=== PATIENT | female | born 1980 | race Caucasian/White ===

== ENCOUNTER 2016-11-07 21:52 | Observation (INO) | payer OTHER | END 2016-11-08 00:15 | disposition home or self-care (01) | LOC: FLD 21:52 | PROVIDERS: ADMIT Obstetrics & Gynecology; ATTEND Obstetrics & Gynecology | DX: Z36 Encounter for antenatal screening of mother (principal) | CPT/HCPCS: 59025; G0378 ==

== ENCOUNTER 2016-11-08 19:40 | Observation (INO) | payer OTHER | END 2016-11-08 20:57 | disposition home or self-care (01) | LOC: FLD 19:40 | PROVIDERS: ADMIT Obstetrics & Gynecology; ATTEND Obstetrics & Gynecology | DX: Z36 Encounter for antenatal screening of mother (principal) | CPT/HCPCS: G0378 ==

== ENCOUNTER 2016-11-16 01:00 | Observation (INO) | payer OTHER | END 2016-11-16 02:25 | disposition home or self-care (01) | LOC: INTOOBSV 01:00 → FLD 01:00 | PROVIDERS: ADMIT Obstetrics & Gynecology; ATTEND Obstetrics & Gynecology | DX: Z36 Encounter for antenatal screening of mother (principal); Z3A.40 40 weeks gestation of pregnancy | CPT/HCPCS: 59025; G0378 ==

== ENCOUNTER 2016-11-18 20:20 | Inpatient (IN) | payer OTHER ==
[2016-11-18] MEDS ORDERED: OXYTOCIN/RINGERS LACTATE 1,000 ML IV PRN (20:43)
[2016-11-18] MEDS ORDERED: LR 1,000 ML IV PRN (20:43)
[2016-11-18] MEDS ORDERED: IBUPROFEN 600 MG TAB PO PRN (20:43)
[2016-11-18] MEDS ORDERED: TERBUTALINE SULFATE 1 MG/ML VIAL IV PRN (20:43)
--- NOTE | 2016-11-18 20:46 | PDGENHP ---
History and Physical - Chief Complaint labor - History of Present Illness Pt is a 35 yo at 40w3d, here for labor. Found to be 8 cm at time of arrival to hospital. complicated by rubella non immune, AMA with normal genetic screening. GBS neg. s/p tdap and flu shots History Information - Allergies/Home Medication List Allergies/Adverse Reactions: metronidazole [From Flagyl] Allergy (Unknown, Verified 06/01/15 06:54) Metronidazole HCl [From Flagyl] Allergy (Unknown, Verified 06/01/15 06:54) gluten Allergy (Verified 11/16/16 01:21) Home Medications: Dha 1 cap PO DAILY 05/29/15 [Last Taken 11/15/16] 1 tab PO DAILY 05/29/15 [Last Taken 11/15/16] CRANBERRY 2 cap PO DAILY 11/16/16 [Last Taken 11/15/16] IRON 1 tab PO Q2EVEN 11/16/16 [Last Taken 11/15/16] I have personally reviewed and updated: family history, medical history, social history, surgical history - Past Medical History Additional medical history: PACs - Surgical History Additional surgical history: D&C x 2 - Social History Smoking Status: Never smoked Alcohol Use: None Drug Use: None Review of Systems ROS: 10pt was reviewed & negative except for what was stated in HPI & below Physical Exam Physical Exam: FHR baseline 120, mod ivis, + acc, no decel Contractions: every 1-2 min SVE 8/100/-1/intact/vtx 123/70 90 37.5 Constitutional: other (in discomfort with contractions) Ears, Nose, Mouth, Throat: moist mucous membranes, hearing normal Cardiovascular: regular rate and rhythym Respiratory: no respiratory distress Gastrointestinal: soft, non-tender abdomen Skin: warm Musculoskeletal: full muscle strength Neurologic: AAOx3 Psychiatric: interacting appropriately, not anxious, thought process linear Assessment & Plan Assessment: 40w3d, active labor GBS neg FHR reassuring Declines pain medication Plan: Anticipate MMR
[2016-11-18] MEDS ORDERED: TERBUTALINE SULFATE 1 MG/ML VIAL ONE (20:55)
[2016-11-18] MEDS ORDERED: MISOPROSTOL 200 MCG TAB ONE (20:55)
[2016-11-18] MEDS ORDERED: OXYTOCIN 10 UNIT/ML VIAL ONE (20:55)
[2016-11-18] MEDS ORDERED: LIDOCAINE 1% 30 ML SDV ONE (20:55)
[2016-11-18] MEDS ORDERED: AMMONIA AROMATIC 1 EACH AMP IH ONE (20:55)
[2016-11-18 21:04] LABS: % IMMATURE GRANULYOCYTES 0.4 % (0.0-1.1); ABSOLUTE IMMATURE GRANULOCYTES 0.05 10^3/uL (0.00-0.10); ADD DIFF? NO; ADD MORPH? NO; ADD SCAN? NO; ATYPICAL LYMPHOCYTE FLAG 0 (0-99); FRAGMENT RBC FLAG 0 (0-99); HEMATOCRIT 42.5 % (38.0-47.0); HEMOGLOBIN 14.8 g/dL (12.6-16.3); LEFT SHIFT FLG 0 (0-99); LIPEMIA HEMOLYSIS FLAG 90 (0-99); MEAN CELL HEMOGLOBIN 31.2 pg (27.9-34.1); MEAN CELL HEMOGLOBIN CONCENTR. 34.8 g/dL (32.4-36.7); MEAN CELL VOLUME 89.7 fL (81.5-99.8); MEAN PLATELET VOLUME 12.4 fL (8.7-11.7); PLATELET CLUMPS FLAG 0 (0-99); PLATELET COUNT 209 10^3/uL (150-400); RED BLOOD CELL COUNT 4.74 10^6/uL (4.18-5.33); RED CELL DISTRIBUTION WIDTH 14.2 % (11.5-15.2)
--- NOTE | 2016-11-18 21:47 | OBPROC ---
- Labor and Delivery Onset of Contractions Date: 11/18/16 Onset of Contractions Time: 19:30 Onset of Contractions Type: Spontaneous Rupture of Membranes Date: 11/18/16 Rupture of Membranes Type: Spontaneous Amniotic Fluid Color: Meconium Stained-Light Delivery Type: Spontaneous Placenta Delivery Date: 11/18/16 Placenta Delivery Time: 21:10 Episiotomy/Laceration: 2nd Degree Repair: 3-0 - Medications Labor Augmentation/Induction Meds Used: None Anesthesia: Local (Specify) (10 ml 1% lidocaine used during vaginal repair) - Info Infant A Delivery Date: 11/18/16 Delivery Time: 21:07 Sex of Infant: Female Score (1 Min): 8 Score (5 Min): 9
[2016-11-18] MEDS: IBUPROFEN 600 MG TAB PO PRN (22:54)
[2016-11-19] MEDS: IBUPROFEN 600 MG TAB PO PRN ×3 (04:56→17:10)
[2016-11-19 08:07] VITALS: BP 103/74; PULSE 79; RESP 16; TEMP 97.5; O2SAT 96
[2016-11-19] MEDS ORDERED: MEASLES,MUMPS&RUBELLA VACC/PF 0.5 ML VIAL SC ONE ×2 (08:12→20:00)
--- NOTE | 2016-11-19 08:16 | SOAPPROG ---
SOAP Progress Note Assessment/Plan: Assessment: 35 y.o. female s/p day #1. A pos, R- NI (vaccine ordered), GBS neg. Stable and without concerns Plan: Routine orders. Anticipate discharge tomorrow. 11/19/16 08:13 Subjective: Reports feeling well with minimal discomfort and vaginal bleeding. infant without assistance. Eating and drinking well without nausea or vomiting. Has been out of bed and ambulating without vertigo. Appropriate mood with good support system. Objective: Vital Signs Temp Pulse Resp BP Pulse Ox 36.4 C 79 16 103/74 96 11/19/16 08:06 11/19/16 08:06 11/19/16 08:06 11/19/16 08:06 11/19/16 08:06 Laboratory Results 11/18/16 20:45 11/18/16 11/19/16 11/20/16 05:59 05:59 05:59 Output Total 300 Balance -300 - Time Spent With Patient Time Spent With Patient: 20 minutes - Pending Discharge Pending Discharge Within 24 Hours: Yes Pending Discharge Date: 11/20/16 Pending Discharge Time: 11:00 Physical Exam - Physical Exam General Appearance: WD/WN, alert, no apparent distress EENT: normal ENT inspection Neck: non-tender, full range of motion Respiratory: lungs clear, normal breath sounds Cardiac/Chest: regular rate, rhythm Abdomen: non-tender, soft Pelvic Exam: normal external exam Rectal: deferred Back: Normal inspection Skin: normal color, warm/dry Lymphatic: no adenopathy Extremities: normal range of motion, non-tender Neuro/Psych: alert, normal mood/affect, oriented x 3 ICD10 Worksheet Patient Problems: Problems Problem Status Onset Spontaneous vaginal delivery Acute
== END 2016-11-19 22:30 | disposition home or self-care (01) | DRG 769 ==
LOC: FLD 20:20 → OBSVTOIN 20:43 → FOB 23:35
PROVIDERS: ADMIT Obstetrics & Gynecology; ATTEND Obstetrics & Gynecology
PROC: 10E0XZZ Delivery of Products of Conception, External Approach (ICD-10-PCS; principal; 2016-11-18)
PROC: 0KQM0ZZ Repair Perineum Muscle, Open Approach (ICD-10-PCS; principal; 2016-11-18)
DX: O70.1 Second degree perineal laceration during delivery (principal); O77.0 Labor and delivery complicated by meconium in amniotic fluid; O09.523 Supervision of elderly multigravida, third trimester; Z3A.40 40 weeks gestation of pregnancy
CPT/HCPCS: J2590; J3105

== ENCOUNTER → 2018-06-23 | Outpatient (CLI) | payer OTHER | LOC: FIMAGING 11:50 | PROVIDERS: ATTEND Family Medicine | DX: M79.672 Pain in left foot (principal) ==

== ENCOUNTER 2018-07-23 18:07 | Emergency (ER) | payer OTHER ==
--- NOTE | 2018-07-23 20:10 | EDPHY ---
H & P Stated Complaint: Visual spots/DVT Time Seen by Provider: 07/23/18 19:40 HPI/ROS: CHIEF COMPLAINT: DVT, visual spots HISTORY OF PRESENT ILLNESS: 37-year-old female presents with a DVT and visual spots. She sustained a metatarsal fracture 3 weeks ago and was placed in a cast. Gradually increasing pain in the left lower extremity for 1 week. Diagnosed with a DVT in the left lower extremity yesterday. She took a 1st dose of Xarelto yesterday. She is currently breast-feeding, so her primary care physician switched her to Lovenox and Coumadin today. She has not taken the 1st doses of these medications yet. She has experienced increased anxiety recently and especially feels anxious about being on blood thinners. She looked on the Internet and her anxiety increased. She then noticed that with blinking, the lights would seem brighter than usual. She has had this happen before, especially in stressful situations. No headache, head injury or loss of vision. REVIEW OF SYSTEMS: complete 10 point ROS reviewed and is negative except for the noted elements in the HPI - Personal History LMP (Females 10-55): 15-21 Days Ago Current Tetanus/Diphtheria Vaccine: Yes - Medical/Surgical History Hx Asthma: No Hx Chronic Respiratory Disease: No Hx Diabetes: No Hx Cardiac Disease: No Hx Renal Disease: No Hx Cirrhosis: No Hx Alcoholism: No Hx HIV/AIDS: No Hx Splenectomy or Spleen Trauma: No Other PMH: pmh- uti/yeast infx 04/04/2015, , PSH: Urethral surg childhood, wisdom teeth removal youth; D&C 2014; Celiac Disease; Rubella NI - Social History Smoking Status: Never smoked Alcohol Use: Sober Drug Use: None - Physical Exam Exam: General Appearance: Alert, pleasant Eyes: Pupils equal and round, EOMI, no conjunctival pallor or injection ENT, Mouth: Mucous membranes moist Neck: Normal inspection Respiratory: Lungs are clear to auscultation Cardiovascular: Regular rate and rhythm Gastrointestinal: Abdomen is soft and nontender Neurological: A&O, nonfocal, normal gait Skin: Warm and dry Extremities: Left lower extremity in a Kurtz boot Psychiatric: Anxious Constitutional: Initial Vital Signs Temperature (C) 37.2 C 07/23/18 18:19 Heart Rate 82 07/23/18 18:19 Respiratory Rate 18 07/23/18 18:19 Blood Pressure 127/79 H 07/23/18 18:19 O2 Sat (%) 97 07/23/18 18:19 O2 Delivery Mode Room Air Allergies/Adverse Reactions: metronidazole [From Flagyl] Allergy (Unknown, Verified 07/23/18 18:25) Metronidazole HCl [From Flagyl] Allergy (Unknown, Verified 07/23/18 18:25) gluten Allergy (Verified 07/23/18 18:25) Home Medications: Medication Instructions Recorded Dha 1 cap PO DAILY 05/29/15 1 tab PO DAILY 05/29/15 CRANBERRY 2 cap PO DAILY 11/16/16 IRON 1 tab PO Q2EVEN 11/16/16 Medical Decision Making ED Course/Re-evaluation: This patient presents with newly diagnosed DVT and significant anxiety. No evidence of serious etiology for visual concern, including no evidence of hemorrhage. The patient was reassured. I answered her multiple questions. The ED RN showed her how to inject Lovenox and she received the 1st dose of Lovenox in the ED. Departure - Departure Disposition: Home, Routine, Self-Care Clinical Impression: DVT of axillary vein, acute left, Anxiety Condition: Good Instructions: Deep Vein Thrombosis (ED), Anxiety (ED) Referrals: Toya Singh MD [Primary Care Provider] - As per Instructions
[2018-07-23 20:25] VITALS: BP 115/77
== END 2018-07-23 20:27 | disposition home or self-care (01) ==
DX: F41.9 Anxiety disorder, unspecified (principal); I82.402 Acute embolism and thrombosis of unspecified deep veins of left lower extremity

== ENCOUNTER 2018-07-30 14:20 | Emergency (ER) | payer OTHER ==
--- NOTE | 2018-07-30 15:05 | EDPHY ---
H & P Stated Complaint: Increased left leg pain, recent diagnosis of DVT. Time Seen by Provider: 07/30/18 14:59 - Personal History Current Tetanus Diphtheria and Acellular Pertussis (TDAP): Yes - Medical/Surgical History Hx Asthma: No Hx Chronic Respiratory Disease: No Hx Diabetes: No Hx Cardiac Disease: No Hx Renal Disease: No Hx Cirrhosis: No Hx Alcoholism: No Hx HIV/AIDS: No Hx Splenectomy or Spleen Trauma: No Other PMH: pmh- uti/yeast infx 04/04/2015, , PSH: Urethral surg childhood, wisdom teeth removal youth; D&C 2015; Celiac Disease; Rubella NI - Social History Smoking Status: Never smoked Constitutional: Initial Vital Signs Temperature (C) 36.6 C 07/30/18 14:24 Heart Rate 85 07/30/18 14:24 Respiratory Rate 16 07/30/18 14:24 Blood Pressure 119/103 H 07/30/18 14:24 O2 Sat (%) 96 07/30/18 14:24 O2 Delivery Mode Room Air Allergies/Adverse Reactions: metronidazole [From Flagyl] Allergy (Unknown, Verified 07/23/18 18:25) Metronidazole HCl [From Flagyl] Allergy (Unknown, Verified 07/23/18 18:25) gluten Allergy (Verified 07/23/18 18:25) Home Medications: Medication Instructions Recorded Coumadin 07/30/18 Enoxaparin [Lovenox 100 MG (*)] 100 mg SQ Q12H #10 syr 07/30/18 Medical Decision Making - Diagnostics Imaging Results: Imaging Impressions Extremity Venous Study 07/30/18 15:17 Impression: Positive deep venous thrombosis involving the left popliteal and calf veins. Findings and recommendations discussed with Emergency Department physician, Yaniv Escobedo MD, at 1628 hours, 07/30/2018. Final report concurs with initial preliminary interpretation. Imaging: Discussed imaging studies w/ tile grinder Radiologist, I viewed and interpreted images myself ED Course/Re-evaluation: CHIEF COMPLAINT: Left leg pain HISTORY OF PRESENT ILLNESS: The patient is an anticoagulated 37 y/o female with a history of a metatarsal fracture which resulted in a DVT and is now complaining of left leg pain. On , 8 days ago, she was diagnosed with the left leg DVT and took Xarelto. On the following Thursday morning she switched to Lovenox and Coumadin as she is . Today her INR was 1.4, but she developed upper left thigh pain. She became concerned that she developed another DVT and decided to present to the emergency department. No headache, chest pain, shortness of breath, abdominal pain, urinary or bowel complaints, numbness, fevers. REVIEW OF SYSTEMS: A comprehensive 10 system review of systems is otherwise negative aside from the elements mentioned in the history of present illness and medical decision making. PHYSICAL EXAM: HR, BP, O2 Sat, RR. Temp noted General Appearance: Alert, well hydrated, appropriate, and non-toxic appearing. Head: Atraumatic without scalp tenderness or obvious injury Eyes: Pupils equal, round, reactive to light and accommodation, EOMI, no trauma , no injection. Ears: Clear bilaterally, no perforation, normal landmarks Nose: Atraumatic, no rhinorrhea, clear. Throat: There is no erythema or exudates, no lesions, normal tonsils, mucus membranes moist. Neck: Supple, nontender, no lymphadenopathy. Respiratory: No retractions, no distress, no wheezes, and no accessory muscle use. Lungs are clear to auscultation bilaterally. Cardiovascular: Regular rate and rhythm, no murmurs, rubs, or gallops. Bilateral carotid, radial, dorsalis pedis, and posterior tibial pulses intact. Good capillary refill all extremities. Gastrointestinal: Abdomen is soft, nontender, non-distended, no masses, no rebound, no guarding, no peritoneal signs. Musculoskeletal: Left Kurtz boot in place. Normal active ROM of all extremities, atraumatic. Neurological: Alert, appropriate, and interactive. The patient has normal DTRs and non-focal cranial nerves, motor, sensory, and cerebellar exam. Skin: No rashes, good turgor, no nodules on palpation. Past medical history: Metatarsal fracture, left leg DVT, Celiac Past surgical history: Urethral surgery, D&C Family history: Denies Social history: at bedside, lives in [place] DIAGNOSTICS/PROCEDURES/CRITICAL CARE TIME: Left extremity US: Popliteal and below DVT; unchanged from prior imaging studies DIFFERENTIAL DIAGNOSIS: The differential diagnosis for the patient's leg swelling included but was not limited to hypoalbuminemia, congestive heart failure, cor pulmonale, venous stasis, trauma, and DVT. MEDICAL DECISION MAKING: The patient is an anticoagulated 37 y/o female with a history of a metatarsal fracture which resulted in a DVT and is now presenting with left leg pain. On exam, she has Kurtz boot on her left foot. Her exam is otherwise unremarkable. Extremity US ordered. 162: I spoke with Dr. Goodwin, radiologist, who reports that the DVT is still in the popliteal and below. 1629: Reassessed patient and discussed her imaging findings. I have advised her to continue taking Lovenox as prescribed as she is still not therapeutic. I have also advised her to follow up with her PCP without fail. I have also advised her to follow up with Dr. Smith regarding the anticoagulants. Return precautions provided; patient is comfortable with this plan. Departure - Departure Disposition: Home, Routine, Self-Care Clinical Impression: Deep venous thrombosis of left popliteal vein Qualifiers: Chronicity: acute Qualified Code(s): I82.432 - Acute embolism and thrombosis of left popliteal vein Condition: Good Instructions: Deep Vein Thrombosis (ED), Deep Vein Thrombosis Prevention (ED) Additional Instructions: 1. Continue taking Lovenox as prescribed. 2. Follow-up with your primary doctor within 72 hours without fail. 3. Return to the Emergency Department for fever, chest pain, shortness of breath , increasing pain or other worsening of condition. 4. Follow up with Dr. Smith, regarding the anticoagulants. Referrals: Toya Singh MD [Primary Care Provider] - As per Instructions Gil Smith MD [Medical Doctor] - As per Instructions Prescriptions: Enoxaparin [Lovenox 100 MG (*)] 100 mg SQ Q12H #10 syr Report Scribed for: Yaniv Escobedo Report Scribed by: Estrella Rod Date of Report: 07/30/18 Time of Report: 15:05
[2018-07-30 16:49] VITALS: BP 116/87
== END 2018-07-30 16:49 | disposition home or self-care (01) ==
DX: I82.432 Acute embolism and thrombosis of left popliteal vein (principal); Z79.01 Long term (current) use of anticoagulants; Z86.718 Personal history of other venous thrombosis and embolism

== ENCOUNTER → 2018-10-18 | Outpatient (CLI) | payer OTHER | LOC: FIMAGING 10:04 | PROVIDERS: ATTEND Family Medicine | DX: I82.592 Chronic embolism and thrombosis of other specified deep vein of left lower extremity (principal) ==

== ENCOUNTER → 2019-02-07 | Outpatient (CLI) | payer OTHER | LOC: FIMAGING 10:05 | PROVIDERS: ATTEND Family Medicine | DX: I82.409 Acute embolism and thrombosis of unspecified deep veins of unspecified lower extremity (principal) ==